=== PATIENT | female | born 1995 | race Caucasian/White ===

== ENCOUNTER 2021-12-10 15:36 | Emergency (ER) | payer MEDICAID ==
[~2021-12-10] VITALS: Ht 162.6 cm; Wt 108.4 kg
--- NOTE | 2021-12-10 15:40 | NUR ---
PT BIBRA FROM WORK C/O DIFFUSE ABDOMINAL PAIN W/ NAUSEA, VOMITING AND DIARRHEA THAT STARTED AT AROUND 1400. 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 GOWNED AND PLACED ON MONITOR. VSS. AWAITING MD LYONS.
--- NOTE | 2021-12-10 15:48 | NUR ---
DR ANTHONY AT BEDSIDE FOR EVAL.
[2021-12-10] MEDS ORDERED: MORPHINE SULFATE INJ 4 MG/ML DISP.SYRIN ONE (15:55)
[2021-12-10] MEDS ORDERED: ONDANSETRON HCL/PF 4 MG/2 ML VIAL ONE (15:55)
[2021-12-10] MEDS ORDERED: HYDROMORPHONE INJ 2 MG/ML DISP.SYRIN IV ONE (16:00)
[2021-12-10] MEDS ORDERED: ONDANSETRON HCL/PF 4 MG/2 ML VIAL IVP ONE (16:00)
[2021-12-10] MEDS ORDERED: IV NS 0.9% 1,000 ML BAG IV ONE (16:00)
--- NOTE | 2021-12-10 16:01 | NUR ---
IV LINE STARTED BLOOD DRAWN AND SENT TO LAB.
[2021-12-10 16:20] LABS: BASOPHILS % (AUTO) 0.3 % (0.0-2.0); EOSINOPHILS % (AUTO) 0.4 % (0.0-6.0); HEMATOCRIT 47 % (33-45); HEMOGLOBIN 15.9 g/dL (11.5-14.8); LYMPHOCYTES # (AUTO) 1.7 K/uL (0.8-4.8); LYMPHOCYTES % (AUTO) 11.5 % (20.0-44.0); MEAN CORPUSCULAR HGB CONC 34 g/dl (31.0-36.0); MEAN CORPUSCULAR VOLUME 84 fL (82-100); MONOCYTES # (AUTO) 0.8 K/uL (0.1-1.30); MONOCYTES % (AUTO) 5.1 % (2.0-12.0); NEUTROPHILS # (AUTO) 12.5 K/uL (1.8-8.9); NEUTROPHILS % (AUTO) 82.7 % (43.0-81.0); PLATELET COUNT (AUTO) 345 K/uL (150-450); RED BLOOD CELL COUNT(AUTO) 5.56 MIL/uL (4.0-5.2); WHITE BLOOD COUNT (AUTO) 15.1 K/uL (4.3-11.0)
--- NOTE | 2021-12-10 16:20 | NUR ---
U/S TECH AT BEDSIDE FOR GALLBLADDER ULTRASOUND.
[2021-12-10] MEDS ORDERED: MORPHINE SULFATE INJ 10 MG/ML DISP.SYRIN IV ONE (16:30)
[2021-12-10 16:41] LABS: CALCIUM, SERUM 8.3 mg/dL (8.5-10.1); CREATININE 0.7 mg/dL (0.6-1.3); POTASSIUM 3.7 mmol/L (3.5-5.1)
[2021-12-10 16:50] LABS: ALBUMIN 3.5 g/dL (3.4-5.0); BILIRUBIN,DIRECT 0.1 mg/dL (0.0-0.2); BILIRUBIN,TOTAL 0.4 mg/dL (0.2-1.0); TOTAL PROTEIN, SERUM 7.2 g/dL (6.4-8.2)
[2021-12-10] MEDS ORDERED: MAG HYDROX/AL HYDROX/SIMETH 30 ML UDC PO ONE (17:30)
[2021-12-10] MEDS ORDERED: LIDOCAINE VISCOUS 2% UD 15 ML UDC MM ONE (17:30)
[2021-12-10 17:41] LABS: BILIRUBIN,URINE NEGATIVE (NEGATIVE); COLOR,URINE YELLOW (YELLOW); LEUKOCYTE ESTERASE ,URINE NEGATIVE (NEGATIVE); NITRITE, URINE NEGATIVE (NEGATIVE); PH,URINE 7.5 (5.0-8.0); PROTEIN,URINE 100 mg/dl (NEGATIVE); UGLUCOSE 100 MG/DL mg/dL (NEGATIVE); UROBILINOGEN,URINE 0.2 EU/dL (0.2)
[2021-12-10] MEDS ORDERED: MAG HYDROX/AL HYDROX/SIMETH 30 ML UDC ONE (17:54)
[2021-12-10] MEDS ORDERED: LIDOCAINE VISCOUS 2% UD 15 ML UDC ONE (17:55)
[2021-12-10 17:57] LABS: BACTERIA,URINE 1+ /HPF (None Seen); RBC,URINE 0-2 /HPF (0-2); SQUAMOUS EPITHELIAL CELL,UR Moderate /HPF (None Seen)
[2021-12-10] MEDS ORDERED: MAG-55 PO (18:08)
[2021-12-10] MEDS ORDERED: ONDA4TAB11 PO (18:08)
--- NOTE | 2021-12-10 18:40 | NUR ---
Patient discharged to home in stable condition. Written and verbal after care instructions given. Patient verbalizes understanding of instruction.IV removed. Catheter intact and site benign. Pressure and 4x4 applied to site. No bleeding noted.
[2021-12-10 18:41] VITALS: BP 122/64
== END 2021-12-10 18:41 | disposition home or self-care (01) ==
LOC: ER 15:49
DX: R10.13 Epigastric pain (principal); K29.70 Gastritis, unspecified, without bleeding; I10 Essential (primary) hypertension; E11.9 Type 2 diabetes mellitus without complications; Z79.899 Other long term (current) drug therapy
CPT/HCPCS: 36415; 76705; 80048; 80076; 81001; 83690; 84703; 85025; 96361; 96374; 96375; 99284; J2270; J2405; J7030